=== PATIENT | male | born 1990 | race Caucasian/White ===

== ENCOUNTER → 2024-08-23 11:00 | Outpatient (BNVA) | payer BC, SELFPAY | PROVIDERS: PCP Family Medicine; Visit Provider Family Medicine | DX: R79.89 Other specified abnormal findings of blood chemistry (principal); F90.0 Attention-deficit hyperactivity disorder, predominantly inattentive type; R63.5 Abnormal weight gain; E29.1 Testicular hypofunction; E55.9 Vitamin D deficiency, unspecified | CPT/HCPCS: 80053; 80061; 82306; 82607; 84403; 84439; 84443; 85025 ==

== ENCOUNTER → 2024-08-30 09:00 | Outpatient (BNVA) | payer BC, SELFPAY | PROVIDERS: PCP Family Medicine; Visit Provider Family Medicine | DX: E05.90 Thyrotoxicosis, unspecified without thyrotoxic crisis or storm (principal); R79.89 Other specified abnormal findings of blood chemistry | CPT/HCPCS: 84439; 84443; 84480; 86376 ==